=== PATIENT | male | born 1995 | race Hispanic/Latino ===

== ENCOUNTER 2017-12-22 14:38 | Emergency (ER) | payer OTHER ==
--- NOTE | 2017-12-22 14:39 | ED PDOC ---
Arrival/HPI - General Time Seen by Provider: 12/22/17 14:39 Historian: Patient - History of Present Illness Narrative History of Present Illness (Text): 12/22/17 14:39 22 year old male, no significant pmh, nkda, complaining of
[2017-12-22 14:56] VITALS: RESP 18; TEMP 99.5
--- NOTE | 2017-12-22 15:37 | ED PDOC ---
Arrival/HPI - General Chief Complaint: Lower Extremity Problem/Injury Time Seen by Provider: 12/22/17 14:39 Historian: Patient - History of Present Illness Narrative History of Present Illness (Text): 12/22/17 15:34 22yr old male presents today with right ankle pain s/p injury. While at work, pt twisted right ankle. pt c/o pain to lateral and medial aspect of ankle. no medications taken for pain at home. pt denies calf pain. denies proximal fibular pain. pt denies numbness, weakness, tingling in the extremity. No other complaints. Time/Duration: Prior to Arrival Symptom Onset: Sudden Symptom Course: Unchanged Severity Level: Mild Past Medical History - Provider Review Nursing Documentation Reviewed: Yes - Travel History Have you recently traveled outside [place] w/in the past 3 mons?: No - Infectious Disease Hx of Infectious Diseases: None - Psychiatric Hx Substance Use: No - Anesthesia Hx Anesthesia: No Family/Social History - Physician Review Nursing Documentation Reviewed: Yes Family/Social History: Unknown Family HX Smoking Status: Current Some Days Smoker Hx Alcohol Use: No Hx Substance Use: No Allergies/Home Meds Allergies/Adverse Reactions: Allergies No Known Allergies Allergy (Verified 12/22/17 14:56) Review of Systems - Review of Systems Constitutional: absent: Fatigue, Fevers Respiratory: absent: SOB, Cough Cardiovascular: absent: Chest Pain, Palpitations Gastrointestinal: absent: Abdominal Pain, Nausea, Vomiting Musculoskeletal: Arthralgias. absent: Back Pain, Neck Pain Skin: absent: Rash, Pruritis Neurological: absent: Headache, Dizziness Psychiatric: absent: Anxiety, Depression Physical Exam Vital Signs Reviewed: Yes Vital Signs Temp Pulse Resp BP Pulse Ox 12/22/17 16:14 79 18 138/79 98 12/22/17 14:52 99.5 F 89 18 141/82 97 Temperature: Afebrile Blood Pressure: Normal Pulse: Regular Respiratory Rate: Normal Appearance: Positive for: Well-Appearing, Non-Toxic, Comfortable Pain Distress: None Mental Status: Positive for: Alert and Oriented X 3 - Systems Exam Head: Present: Atraumatic Mouth: Present: Moist Mucous Membranes Neck: Present: Normal Range of Motion Respiratory/Chest: Present: Clear to Auscultation, Good Air Exchange. No: Respiratory Distress, Accessory Muscle Use Cardiovascular: Present: Regular Rate and Rhythm, Normal S1, S2. No: Murmurs Upper Extremity: Present: Normal Inspection, Normal ROM Lower Extremity: Present: NORMAL PULSES, Normal ROM, Tenderness (right ankle; + edema and tenderness noted over lateral aspect of ankle over lateral malleolus. no proximal fibular tenderness. no foot tenderness; no erythema. no warmth. full rom of ankle with pain. sensation and distal pulses intact. cap refill <2. ), Swelling, Neurovascularly Intact, Capillary Refill < 2 s. No: CALF TENDERNESS, Erythema, Deformity, Temperature Abnormalties Skin: Present: Warm, Dry, Normal Color Psychiatric: Present: Alert, Oriented x 3 Medical Decision Making ED Course and Treatment: 12/22/17 15:39 Patient nontoxic well-appearing in no distress with stable vital signs Toradol IM X-rays of the Right ankle ;FINDINGS: BONES: Three views of the right ankle were performed. No fracture is seen. No ankle mortise widening is noted. Talar dome is normal in outline. Subtalar joint is within normal limits. No significant degenerative changes are seen. No ankle joint effusion is noted. Tarsal bones and metatarsals are grossly intact. JOINTS: Normal. No osteoarthritis. Ankle mortise maintained. Talar dome intact SOFT TISSUES: Soft tissue swelling is noted overlying the lateral malleolus. OTHER FINDINGS: None. IMPRESSION: No fracture. Ankle sprain with soft tissue swelling. Patient placed in aircast/crutches given for ambulation. I discussed all results in depth with the patient advised to followup with the orthopedist within the next 2 days. Advised return if symptoms worsen persist or new symptoms develop. i advised the patient that although the xrays show no fracture; there is still a possibility for ligamentous or tendon injury the patient must see the orthopedist for further evaluation. Patient verbalizes understanding of discharge instructions and need for immediate followup. all aspects of this case were discussed the attending of record. Impression: Ankle pain Motrin every 6 hours as needed for pain Rest, ice, compression, elevation Use crutches for ambulation Followup with the orthopedist within the next 2 days Followup with primary care physician within the next 2 days Return if symptoms worsen persist or if new symptoms develop - RAD Interpretation Radiology Orders: 12/22/17 15:08 ANKLE RIGHT 3 VIEWS ROUTINE [RAD] Stat - Medication Orders Current Medication Orders: Discontinued Medications Ketorolac Tromethamine (Toradol) 60 mg IM STAT STA Stop: 12/22/17 14:59 Last Admin: 12/22/17 15:22 Dose: 60 mg MAR Pain Assessment Document 12/22/17 15:22 LA (Rec: 12/22/17 15:27 LA [id number]) Pain Reassessment Is this a pain reassessment? No Sleep Is patient sleeping during reassessment? No Presence of Pain Presence of Pain Yes Pain Scale Used Pain Scale Used Numeric Location Left, Right or Bilateral Right Pain Location Body Site Ankle Description Intensity of Pain at present 5 IM Administration Charges Document 12/22/17 15:22 LA (Rec: 12/22/17 15:27 LA [id number]) Injection Site MAR Injection Site Right Gluteus Sha Charges for Administration # of IM Administrations 1 Re-Assess: MAR Pain Assessment Document 12/22/17 16:22 LA (Rec: 12/22/17 16:23 LA [id number]) Pain Reassessment Is this a pain reassessment? Yes Sleep Is patient sleeping during reassessment? No Presence of Pain Presence of Pain Yes Pain Scale Used Pain Scale Used Numeric Location Left, Right or Bilateral Right Pain Location Body Site Ankle Description Intensity of Pain at present 3 Disposition/Present on Arrival - Present on Arrival Any Indicators Present on Arrival: No History of DVT/PE: No History of Uncontrolled Diabetes: No Urinary Catheter: No History of Decub. Ulcer: No History Surgical Site Infection Following: None - Disposition Have Diagnosis and Disposition been Completed?: Yes Diagnosis: Ankle pain Disposition: HOME/ ROUTINE Disposition Time: 16:33 Patient Plan: Discharge Condition: GOOD Discharge Instructions (ExitCare): Ankle Sprain Additional Instructions: Motrin every 6 hours as needed for pain Rest, ice, compression, elevation Use crutches for ambulation Followup with the orthopedist within the next 2 days Followup with primary care physician within the next 2 days Return if symptoms worsen persist or if new symptoms develop Prescriptions: Ibuprofen [Motrin] 600 mg PO Q6H PRN #20 tab PRN Reason: pain/fever reduction Referrals: Abdiel Ledezma DO [Staff Provider] - Follow up with primary Rebecca oKo MD [Staff Provider] - Follow up with primary Forms: [employer] (K[place]akh), WORK NOTE
--- NOTE | 2017-12-22 15:43 | RAD ---
PROCEDURE: Right Ankle Radiographs. HISTORY: right ankle injury r/o fx COMPARISON: None FINDINGS: BONES: Three views of the right ankle were performed. No fracture is seen. No ankle mortise widening is noted. Talar dome is normal in outline. Subtalar joint is within normal limits. No significant degenerative changes are seen. No ankle joint effusion is noted. Tarsal bones and metatarsals are grossly intact. JOINTS: Normal. No osteoarthritis. Ankle mortise maintained. Talar dome intact SOFT TISSUES: Soft tissue swelling is noted overlying the lateral malleolus. OTHER FINDINGS: None. IMPRESSION: No fracture. Ankle sprain with soft tissue swelling.
[2017-12-22 16:15] VITALS: BP 138/79; PULSE 79; O2SAT 98
== END 2017-12-22 16:50 | disposition home or self-care (01) ==
LOC: ED 14:38
DX: M25.571 Pain in right ankle and joints of right foot (principal); F17.200 Nicotine dependence, unspecified, uncomplicated
CPT/HCPCS: 73610; 96372; 99284; J1885